=== PATIENT | female | born 1985 ===

== ENCOUNTER 2016-11-30 11:40 | Emergency (ER) | payer MEDICAID ==
[2016-11-30 12:02] VITALS: BP 126/77; PULSE 76; RESP 20; TEMP 98.7; O2SAT 99
--- NOTE | 2016-11-30 12:48 | ED PDOC ---
Upper Extremity Pain/Injury Time Seen by Provider: 11/30/16 12:11 Chief Complaint (Nursing): Abnormal Skin Integrity Chief Complaint (Provider): Finger laceration History Per: Patient History/Exam Limitations: no limitations Onset/Duration Of Symptoms: Mins (12) Current Symptoms Are (Timing): Still Present Quality: "Pain" Severity: Mild Exacerbating Factor(s): Strenuous Use Of Affected Area Additional Complaint(s): The patient is a 31yo female, presents to the ED for evaluation of a laceration on her right 3rd digit, sustained at 11pm yesterday. Patient states she was attempting to put something in her oven when she injured her finger. She reports some pain with movement of the finger but denies any numbness or tingling. Patient states she is unsure if her tetanus vaccination is up to date. She offers no additional medical complaints. Past Medical History Reviewed: Historical Data, Nursing Documentation, Vital Signs Vital Signs: Last Vital Signs Temp 98.7 F 11/30/16 11:59 Pulse 76 11/30/16 11:59 Resp 20 11/30/16 11:59 BP 126/77 11/30/16 11:59 Pulse Ox 99 11/30/16 11:59 - Medical History PMH: No Chronic Diseases Denies: Chronic Kidney Disease - Surgical History Surgical History: No Surg Hx - Family History Family History: States: No Known Family Hx - Living Arrangements Living Arrangements: With Family - Allergies Allergies/Adverse Reactions: Allergies Allergy/AdvReac Type Severity Reaction Status Date / Time No Known Allergies Allergy Verified 11/30/16 11:59 Review of Systems Musculoskeletal: Positive for: Hand Pain (aceration to right 3rd finger, pain with movement) Neurological: Negative for: Weakness, Numbness Physical Exam - Reviewed Nursing Documentation Reviewed: Yes Vital Signs Reviewed: Yes - Physical Exam Appears: Positive for: Non-toxic, No Acute Distress Skin: Positive for: Normal Color Neck: Positive for: Supple Cardiovascular/Chest: Positive for: Regular Rate, Rhythm Respiratory: Negative for: Respiratory Distress Pulses-Radial (L): 2+ Pulses-Radial (R): 2+ Extremity: Positive for: Normal ROM, Capillary Refill (< 2 seconds), Other (1in laceration to dorsum of right 3rd digit, no active bleeding. FROM of right 3rd digit. ). Negative for: Tenderness, Deformity, Swelling Neurologic/Psych: Positive for: Alert, Oriented - ECG O2 Sat by Pulse Oximetry: 99 (RA) Pulse Ox Interpretation: Normal Medical Decision Making Medical Decision Making: Time: 1245 Impression: Laceration to right 3rd digit Plan: -- Patient informed since wound was sustained more than 12 hours ago, sutures are not indicated. Wound irrigated and cleaned with normal saline and betadine. Dermabond applied and finger placed in a splint. Sterile dressing applied. -- TDAP booster given. Patient stable for discharge home. Scribe Attestation: Documented by Stefani Appiah acting as a scribe for MARY Martinez Provider Attestation: All medical record entries made by the Scribe were at my direction and personally dictated by me. I have reviewed the chart and agree that the record accurately reflects my personal performance of the history, physical exam, medical decision making, and the department course for this patient. I have also personally directed, reviewed, and agree with the discharge instructions and disposition. Disposition - Clinical Impression Clinical Impression: Laceration - Disposition Disposition: Routine/Home Disposition Time: 12:48 Condition: STABLE Additional Instructions: do not wet for 24hours. keep splint on to prevent wound from bending. Instructions: Skin Adhesive Care (ED) Forms: [employer] (Telugu)
== END 2016-11-30 12:56 | disposition home or self-care (01) ==
LOC: H.ER 11:40
DX: S61.212A Laceration without foreign body of right middle finger without damage to nail, initial encounter (principal); W26.8XXA Contact with other sharp object(s), not elsewhere classified, initial encounter; Y92.000 Kitchen of unspecified non-institutional (private) residence as the place of occurrence of the external cause

== ENCOUNTER 2016-12-17 19:37 | Emergency (ER) | payer MEDICAID ==
[2016-12-17 20:03] VITALS: BP 146/92; PULSE 99; RESP 18; TEMP 98.9; O2SAT 99
--- NOTE | 2016-12-17 20:44 | ED PDOC ---
Lower Extremity Pain/Injury Time Seen by Provider: 12/17/16 20:05 Chief Complaint (Nursing): Lower Extremity Problem/Injury Chief Complaint (Provider): Left knee injury History Per: Patient History/Exam Limitations: no limitations Additional Complaint(s): Mariza is a 31 y/o female who presents to the ED for evaluation of left knee injury. States that today walking down stairs, she landed on her foot wrong, and twisted the left knee in an odd fashion. Now having persistent pain since this morning. Tried icing the area but it continues to be very painful. 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 No numbness, weakness, or radiation of pain to hip. There is swelling to lateral aspect of left knee. PMD: Annia Hall - Knee Description Of Injury: Twisted Past Medical History Reviewed: Historical Data, Nursing Documentation, Vital Signs Vital Signs: Last Vital Signs Temp 98.9 F 12/17/16 19:59 Pulse 99 H 12/17/16 19:59 Resp 18 12/17/16 19:59 BP 146/92 H 12/17/16 19:59 Pulse Ox 99 12/17/16 19:59 - Medical History PMH: Denies: Chronic Kidney Disease - Family History Family History: States: Unknown Family Hx - Home Medications Home Medications: Ambulatory Orders Medication Instructions Recorded Cane 1 each MC DAILY #1 each 12/17/16 Tramadol HCl [Ultram] 50 mg PO Q6 #15 tablet NS 12/17/16 - Allergies Allergies/Adverse Reactions: Allergies Allergy/AdvReac Type Severity Reaction Status Date / Time No Known Allergies Allergy Verified 12/17/16 19:59 Review of Systems ROS Statement: Except As Marked, All Systems Reviewed And Found Negative Musculoskeletal: Positive for: Leg Pain (Left knee) Physical Exam - Reviewed Nursing Documentation Reviewed: Yes Vital Signs Reviewed: Yes - Physical Exam Appears: Positive for: Well, Non-toxic, No Acute Distress Extremity: Positive for: Tenderness (Tenderness to lateral aspect of left knee with swelling. Tenderness with ROM to knee on internal rotation, indication of possible ACL injury. Neurovascularly intact.). Negative for: Other (Marie test) Neurologic/Psych: Positive for: Alert, Oriented - ECG O2 Sat by Pulse Oximetry: 99 (RA) Pulse Ox Interpretation: Normal Medical Decision Making Medical Decision Making: Time: 20:35 Initial Plan: --Knee immobilizer placed by PA --Patient advised to follow up with orthopedist for MRI --Given Rx for tramadol for pain control Scribe Attestation: Documented by Jennifer Branch, acting as a scribe for Anamaria Peralta PA-C Provider Scribe Attestation: All medical record entries made by the Scribe were at my direction and personally dictated by me. I have reviewed the chart and agree that the record accurately reflects my personal performance of the history, physical exam, medical decision making, and the department course for this patient. I have also personally directed, reviewed, and agree with the discharge instructions and disposition. Disposition - Clinical Impression Clinical Impression: Knee injury, Knee MCL sprain - Patient ED Disposition Is Patient to be Admitted: No Counseled Patient/Family Regarding: Diagnosis, Need For Followup, Rx Given - Disposition Referrals: [facility] [Outside] [facility] [place] [Outside] Marilin Jennings MD [Staff Provider] - Disposition: Routine/Home Disposition Time: 20:40 Prescriptions: Cane 1 each MC DAILY #1 each Tramadol HCl [Ultram] 50 mg PO Q6 #15 tablet NS Instructions: ACL Injury (ED), Knee Immobilizer (ED) Forms: [employer] ([place])
== END 2016-12-17 21:14 | disposition home or self-care (01) ==
LOC: H.ER 19:37
DX: S83.92XA Sprain of unspecified site of left knee, initial encounter (principal); W10.9XXA Fall (on) (from) unspecified stairs and steps, initial encounter; Y92.89 Other specified places as the place of occurrence of the external cause